=== PATIENT | male | born 1940 | race Asian ===

== ENCOUNTER 2017-05-11 12:43 | Emergency (ER) | payer MEDICARE ==
[~2017-05-11] VITALS: Ht 180.3 cm; Wt 75.0 kg
[2017-05-11 12:57] VITALS: BP 189/93; PULSE 81; RESP 20; O2SAT 100
--- NOTE | 2017-05-11 13:10 | PD ---
HPI Chief Complaint: Chest Pain Time Seen by Provider: 12:54 Travel History International Travel<30 days: No Contact w/Intl Traveler<30days: No Traveled to known affect area: No History of Present Illness HPI 76-year-old male with PMH of hypertension presents to the ED for evaluation of 8 /10 sharp left-sided chest pain. Onset around 1030am while at rest. Pain is described as constant, no alleviating or exacerbating factors reported. Patient reports accompanying weakness. He denies palpitations, shortness of breath, nausea, vomiting, diaphoresis. He denies personal or familial history of IA. He states that he saw his primary care provider 2 days ago and was treated for flulike symptoms with an unknown antibiotic and a course of steroids. He endorses compliance with those medications. He has not taken his morning dose of lisinopril. PFSH Past Medical History Cardiovascular Problems: Yes (HTN) Social History Tobacco Use: No Allergies-Medications (Allergen,Severity, Reaction): Coded Allergies: No Known Allergies (Unverified , 05/11/17) Review of Systems Except as stated in HPI: all other systems reviewed are Neg Physical Exam Narrative GENERAL: Well-nourished, well-developed thin male in no acute distress. SKIN: Focused skin assessment warm/dry. Multiple macules noted over the skin surface. HEAD: Normocephalic. EYES: No scleral icterus. No injection or drainage. NECK: Supple, trachea midline. No JVD or lymphadenopathy. CARDIOVASCULAR: Regular rate and rhythm without murmurs, gallops, or rubs. CHEST: Nontender throughout without deformity or crepitus. No retractions or use of accessory muscles. RESPIRATORY: Breath sounds clear and equal bilaterally. No accessory muscle use. GASTROINTESTINAL: Abdomen soft, non-tender, nondistended. Active bowel sounds. MUSCULOSKELETAL: No cyanosis, or edema. BACK: Nontender without obvious deformity. No CVA tenderness. Data Data Last Documented VS Vital Signs Date Time Temp Pulse Resp B/P (MAP) Pulse Ox O2 Delivery O2 Flow Rate FiO2 05/11/17 16:48 75 16 158/91 (113) 98 05/11/17 13:43 Room Air Orders Orders Electrocardiogram (05/11/17 13:01) Ckmb (Isoenzyme) Profile (05/11/17 13:01) Complete Blood Count With Diff (05/11/17 13:01) Comprehensive Metabolic Panel (05/11/17 13:01) Magnesium (Mg) (05/11/17 13:01) Prothrombin Time / Inr (Pt) (05/11/17 13:01) Act Partial Throm Time (Ptt) (05/11/17 13:01) Troponin I (05/11/17 13:01) Chest, Single Ap (05/11/17 13:01) Ecg Monitoring (05/11/17 13:01) Bilateral Bp Monitoring (05/11/17 13:01) Iv Access Insert/Monitor (05/11/17 13:01) Oximetry (05/11/17 13:01) Oxygen Administration (05/11/17 13:01) Aspirin Chew (Aspirin Chew) (05/11/17 13:15) Sodium Chloride 0.9% Flush (Ns Flush) (05/11/17 13:15) Sodium Chlorid 0.9% 500 Ml Inj (Ns 500 M (05/11/17 13:15) Lisinopril (Prinivil) (05/11/17 13:15) Influenzae A/B Antigen (05/11/17 13:10) Nitroglycerin Sl (Nitrostat Sl) (05/11/17 14:00) CKMB (05/11/17 13:40) CKMB% (05/11/17 13:40) Sodium Chlor 0.9% 1000 Ml Inj (Ns 1000 M (05/11/17 14:45) Sodium Chlor 0.9% 1000 Ml Inj (Ns 1000 M (05/11/17 15:00) Ed Discharge Order (05/11/17 15:07) Labs Laboratory Tests Test 05/11/17 13:40 White Blood Count 12.4 TH/MM3 Red Blood Count 5.17 MIL/MM3 Hemoglobin 15.9 GM/DL Hematocrit 47.2 % Mean Corpuscular Volume 91.4 FL Mean Corpuscular Hemoglobin 30.7 PG Mean Corpuscular Hemoglobin Concent 33.6 % Red Cell Distribution Width 13.7 % Platelet Count 214 TH/MM3 Mean Platelet Volume 8.0 FL Neutrophils (%) (Auto) 82.7 % Lymphocytes (%) (Auto) 11.8 % Monocytes (%) (Auto) 5.4 % Eosinophils (%) (Auto) 0.0 % Basophils (%) (Auto) 0.1 % Neutrophils # (Auto) 10.2 TH/MM3 Lymphocytes # (Auto) 1.5 TH/MM3 Monocytes # (Auto) 0.7 TH/MM3 Eosinophils # (Auto) 0.0 TH/MM3 Basophils # (Auto) 0.0 TH/MM3 CBC Comment DIFF FINAL Differential Comment Prothrombin Time 12.2 SEC Prothromb Time International Ratio 1.2 RATIO Activated Partial Thromboplast Time 25.2 SEC Blood Urea Nitrogen 22 MG/DL Creatinine 1.32 MG/DL Random Glucose 135 MG/DL Total Protein 7.2 GM/DL Albumin 3.4 GM/DL Calcium Level 9.2 MG/DL Magnesium Level 2.3 MG/DL Alkaline Phosphatase 64 U/L Aspartate Amino Transf (AST/SGOT) 37 U/L Alanine Aminotransferase (ALT/SGPT) 28 U/L Total Bilirubin 0.8 MG/DL Sodium Level 139 MEQ/L Potassium Level 4.0 MEQ/L Chloride Level 105 MEQ/L Carbon Dioxide Level 23.5 MEQ/L Anion Gap 11 MEQ/L Estimat Glomerular Filtration Rate 53 ML/MIN Total Creatine Kinase 608 U/L Creatine Kinase MB 1.8 NG/ML Creatine Kinase MB % 0.3 % Troponin I LESS THAN 0.02 NG/ML MDM Medical Decision Making Medical Screen Exam Complete: Yes Emergency Medical Condition: Yes Differential Diagnosis Chest pain versus viral syndrome versus pneumonia versus influenza versus less likely ACS versus other Narrative Course 76-year-old male with PMH of HTN presents to the ED for evaluation of 8/10 sharp left-sided chest pain. Onset around 1030am while at rest. He denies palpitations, shortness of breath, nausea, vomiting, diaphoresis. He denies personal or familial history of IA. He states that he saw his primary care provider 2 days ago and was treated for flulike symptoms with an unknown antibiotic and a course of steroids. He endorses compliance with those medications. He has not taken his morning dose of lisinopril. Pulse 81, O2 sats 100% on room air, hypertensive on presentation. On exam a nontoxic- appearing male in no acute distress. No appreciable M/R/G. Chest CTA B. Mucous membranes are dry. Patient was administered chewable ASA, sublingual nitroglycerin, 1 L normal saline IV. EKG rate 83, sinus rhythm. DE interval 149, QRS 85, QTC 415. Normal axis. No acute ST changes. Reviewed by Dr. Petty. No EKGs available for comparison. Cardiac enzymes negative 1. CXR: No acute disease per radiology read. WBC 12.4, neutrophil predominant. INR 1.2. BUN 22, creatinine 1.32. Glucose 135. Flu swab negative. Patient was administered a second liter normal saline. I discussed the results of the workup with the patient. I don't believe there is a cardiac origin to his problem. I suspect that it is more pleuritic pain related to his recent cough and cold symptoms. Patient is in agreement. He is instructed to continue with the medications prescribed by his primary care provider, follow- up as needed, return to the ED for worsening symptoms. He indicated understanding of the instructions. He is stable and discharged home. Diagnosis Primary Impression: Viral syndrome Additional Impression: Dehydration Referrals: Primary Care Physician Patient Instructions: Dehydration (ED), General Instructions, Viral Syndrome ( ED) Additional Instructions: Rest, hydrate. Resume at home medications as prescribed. Follow up with your primary care provider. Return to the ED for worsening symptoms or any urgent or emergent medical condition. Disposition: 01 DISCHARGE HOME Condition: Stable Mar Huerta May 11, 2017 13:10
[2017-05-11] MEDS ORDERED: SODIUM CHLORID 0.9% 500 ML INJ 500 ML IV ONE (13:15)
[2017-05-11] MEDS ORDERED: ASPIRIN 81 MG CHEW TAB PO ONE (13:15)
[2017-05-11] MEDS ORDERED: SODIUM CHLORIDE 0.9% FLUSH 10 ML FLUSH IVF PRN (13:15)
[2017-05-11] MEDS ORDERED: LISINOPRIL 20 MG TAB PO ONE (13:15)
[2017-05-11 13:43] VITALS: PULSE 84; RESP 20; O2SAT 97
--- NOTE | 2017-05-11 13:50 | RADRPT ---
EXAM DATE/TIME: 05/11/2017 13:15 [facility] COMPARISON: No previous studies available for comparison. INDICATIONS : Chest pain, Shortness of breath. Fever and chills. MEDICAL HISTORY : Hypertension. SURGICAL HISTORY : None. ENCOUNTER: Initial ACUITY: 1 day PAIN SCORE: 6/10 LOCATION: Bilateral chest FINDINGS: A single view of the chest demonstrates the lungs to be symmetrically aerated without evidence of mas s, infiltrate or effusion. The cardiomediastinal contours are unremarkable. Osseous structures are intact. CONCLUSION: No acute disease. Ayo Quiroz MD on May 11, 2017 at 13:48 Board Certified Radiologist. This report was verified electronically.
[2017-05-11] MEDS ORDERED: NITROGLYCERIN 0.4 MG SL 25 TABS/BTL SL SCH (14:00)
[2017-05-11 14:08] LABS: AUTOMATED NEUTROPHIL # 10.2 TH/MM3 (1.8-7.7); BASOPHIL % 0.1 % (0.0-2.0); HEMATOCRIT 47.2 % (39.0-51.0); HEMOGLOBIN 15.9 GM/DL (13.0-17.0); LYMPH % 11.8 % (9.0-44.0); LYMPHOCYTE # 1.5 TH/MM3 (1.0-4.8); MEAN CELL VOLUME 91.4 FL (80.0-100.0); MEAN CORPUSCULAR HEMOGLOBIN 30.7 PG (27.0-34.0); MEAN CORPUSCULAR HGB CONC 33.6 % (32.0-36.0); MONO % 5.4 % (0.0-8.0); MONOCYTE # 0.7 TH/MM3 (0-0.9); NEUT % 82.7 % (16.0-70.0); PLATELET COUNT 214 TH/MM3 (150-450); RED BLOOD COUNT 5.17 MIL/MM3 (4.50-5.90); RED CELL DISTRIBUTION WIDTH 13.7 % (11.6-17.2); WHITE BLOOD COUNT 12.4 TH/MM3 (4.0-11.0)
[2017-05-11 14:16] LABS: INTERNATIONAL NORMALIZED RATIO 1.2 RATIO; PROTHROMBIN TIME - PATIENT 12.2 SEC (9.8-11.6)
[2017-05-11 14:20] LABS: ALT (GPT) 28 U/L (12-78)
[2017-05-11 14:24] LABS: ALKALINE PHOSPHATASE 64 U/L (45-117); TOTAL BILIRUBIN ADULT 0.8 MG/DL (0.2-1.0); TOTAL PROTEIN 7.2 GM/DL (6.4-8.2); TROPONIN I LESS THAN 0.02 NG/ML (0.02-0.05)
[2017-05-11 14:25] LABS: ALBUMIN 3.4 GM/DL (3.4-5.0); AST (GOT) 37 U/L (15-37); BICARBONATE 23.5 MEQ/L (21.0-32.0); BLOOD UREA NITROGEN 22 MG/DL (7-18); CALCIUM 9.2 MG/DL (8.5-10.1); CHLORIDE 105 MEQ/L (98-107); CREATININE 1.32 MG/DL (0.60-1.30); GLOMERULAR FILTRATION RATE 53 ML/MIN (>89); GLUCOSE,RANDOM 135 MG/DL (74-106); MAGNESIUM 2.3 MG/DL (1.5-2.5); SODIUM (NA) 139 MEQ/L (136-145)
[2017-05-11] MEDS ORDERED: SODIUM CHLOR 0.9% 1000 ML INJ 1,000 ML IV ONE ×2 (14:45→15:00)
--- NOTE | 2017-05-11 15:07 | PD ---
Data Data Last Documented VS Vital Signs Date Time Temp Pulse Resp B/P (MAP) Pulse Ox O2 Delivery O2 Flow Rate FiO2 05/11/17 13:43 97 Room Air 05/11/17 13:43 84 20 05/11/17 12:57 189/93 (125) Orders Orders Electrocardiogram (05/11/17 13:01) Ckmb (Isoenzyme) Profile (05/11/17 13:01) Complete Blood Count With Diff (05/11/17 13:01) Comprehensive Metabolic Panel (05/11/17 13:01) Magnesium (Mg) (05/11/17 13:01) Prothrombin Time / Inr (Pt) (05/11/17 13:01) Act Partial Throm Time (Ptt) (05/11/17 13:01) Troponin I (05/11/17 13:01) Chest, Single Ap (05/11/17 13:01) Ecg Monitoring (05/11/17 13:01) Bilateral Bp Monitoring (05/11/17 13:01) Iv Access Insert/Monitor (05/11/17 13:01) Oximetry (05/11/17 13:01) Oxygen Administration (05/11/17 13:01) Aspirin Chew (Aspirin Chew) (05/11/17 13:15) Sodium Chloride 0.9% Flush (Ns Flush) (05/11/17 13:15) Sodium Chlorid 0.9% 500 Ml Inj (Ns 500 M (05/11/17 13:15) Lisinopril (Prinivil) (05/11/17 13:15) Influenzae A/B Antigen (05/11/17 13:10) Nitroglycerin Sl (Nitrostat Sl) (05/11/17 14:00) CKMB (05/11/17 13:40) CKMB% (05/11/17 13:40) Sodium Chlor 0.9% 1000 Ml Inj (Ns 1000 M (05/11/17 14:45) Sodium Chlor 0.9% 1000 Ml Inj (Ns 1000 M (05/11/17 15:00) Labs Laboratory Tests Test 05/11/17 13:40 White Blood Count 12.4 TH/MM3 Red Blood Count 5.17 MIL/MM3 Hemoglobin 15.9 GM/DL Hematocrit 47.2 % Mean Corpuscular Volume 91.4 FL Mean Corpuscular Hemoglobin 30.7 PG Mean Corpuscular Hemoglobin Concent 33.6 % Red Cell Distribution Width 13.7 % Platelet Count 214 TH/MM3 Mean Platelet Volume 8.0 FL Neutrophils (%) (Auto) 82.7 % Lymphocytes (%) (Auto) 11.8 % Monocytes (%) (Auto) 5.4 % Eosinophils (%) (Auto) 0.0 % Basophils (%) (Auto) 0.1 % Neutrophils # (Auto) 10.2 TH/MM3 Lymphocytes # (Auto) 1.5 TH/MM3 Monocytes # (Auto) 0.7 TH/MM3 Eosinophils # (Auto) 0.0 TH/MM3 Basophils # (Auto) 0.0 TH/MM3 CBC Comment DIFF FINAL Differential Comment Prothrombin Time 12.2 SEC Prothromb Time International Ratio 1.2 RATIO Activated Partial Thromboplast Time 25.2 SEC Blood Urea Nitrogen 22 MG/DL Creatinine 1.32 MG/DL Random Glucose 135 MG/DL Total Protein 7.2 GM/DL Albumin 3.4 GM/DL Calcium Level 9.2 MG/DL Magnesium Level 2.3 MG/DL Alkaline Phosphatase 64 U/L Aspartate Amino Transf (AST/SGOT) 37 U/L Alanine Aminotransferase (ALT/SGPT) 28 U/L Total Bilirubin 0.8 MG/DL Sodium Level 139 MEQ/L Potassium Level 4.0 MEQ/L Chloride Level 105 MEQ/L Carbon Dioxide Level 23.5 MEQ/L Anion Gap 11 MEQ/L Estimat Glomerular Filtration Rate 53 ML/MIN Total Creatine Kinase 608 U/L Creatine Kinase MB 1.8 NG/ML Creatine Kinase MB % 0.3 % Troponin I LESS THAN 0.02 NG/ML [facility] Supervised Visit with NNEKA: Yes Narrative Course The history, exam, and medical decision-making in the associated mid-level provider note were completed with my assistance. I reviewed and agree with the findings presented. I attest that I had a [id number] encounter with the patient on the same day, and personally performed and documented my assessment and findings in the medical record. *My assessment and Findings: This 76-year-old man, hypertension and left-sided chest pain. The setting of flulike symptoms and URI symptoms. Impression is a seems musculoskeletal. I reviewed EKG labs and x-ray. He is feeling much improved. BUN and creatinine were bit elevated suggesting dehydration. Discussed this with him, I think patient having myalgias and chest wall pains. I do not think he needs further evaluation for ACS. Recommend continue supportive treatment. Diagnosis Primary Impression: Viral syndrome Additional Impression: Dehydration Referrals: Primary Care Physician Patient Instructions: General Instructions, Dehydration (ED), Viral Syndrome ( ED) Additional Instruction: Rest, hydrate. Resume at home medications as prescribed. Follow up with your primary care provider. Return to the ED for worsening symptoms or any urgent or emergent medical condition. Disposition: 01 DISCHARGE HOME Condition: Stable Jameson Petty MD May 11, 2017 15:07
[2017-05-11 16:48] VITALS: BP 158/91
--- NOTE | 2017-05-12 23:06 | EKG ---
Date Performed: 05/11/2017 Time Performed: 13:09:14 PTAGE: 76 years EKG: Sinus rhythm PROBABLE INFERIOR MYOCARDIAL INFARCTION ABNORMAL ECG INTERPRETATION BASED ON A DEFAULT AGE OF 40 MILLIE PAGAN NO PREVIOUS TRACING DOCTOR: Analisa Osullivan Interpretating Date/Time 05/12/2017 23:03:27
== END 2017-05-11 16:45 | disposition home or self-care (01) ==
LOC: NEPE 12:43
DX: B34.9 Viral infection, unspecified (principal); E86.0 Dehydration; R94.31 Abnormal electrocardiogram [ECG] [EKG]; I10 Essential (primary) hypertension
CPT/HCPCS: 71045; 80053; 82550; 82552; 83735; 84484; 85025; 85610; 85730; 87804; 93005; 99285; J7030; J7040